=== PATIENT | male | born 1985 | race Two or more races ===

== ENCOUNTER 2021-09-29 19:56 | Emergency (ER) | payer BC, OTHER ==
[2021-09-29 20:14] VITALS: BP 134/83; PULSE 93; BMI 27.1
== END 2021-09-30 01:17 | disposition home or self-care (01) ==
LOC: JER 19:56
DX: S09.90XA Unspecified injury of head, initial encounter (principal); S06.0X0A Concussion without loss of consciousness, initial encounter; W22.8XXA Striking against or struck by other objects, initial encounter
CPT/HCPCS: 70450-TC; 99281-25